=== PATIENT | female | born 1960 | race Caucasian/White ===

== ENCOUNTER 2022-07-11 11:36 | Emergency (ER) | payer OTHER ==
[~2022-07-11] VITALS: Ht 154.9 cm; Wt 103.4 kg
[~2022-07-11 11:36] MED LIST: CAPOTEN12.5 MG PO; SYNTHROID175 MCG; SYNTHROID175 MCG PO
== END 2022-07-11 15:20 | disposition home or self-care (01) ==
LOC: ER 11:36
DX: S00.93XA Contusion of unspecified part of head, initial encounter (principal); W18.30XA Fall on same level, unspecified, initial encounter; Y93.9 Activity, unspecified; Y92.480 Sidewalk as the place of occurrence of the external cause; Y99.9 Unspecified external cause status

== ENCOUNTER 2025-04-17 00:34 | Emergency (ER) | payer OTHER ==
[~2025-04-17] VITALS: Ht 154.9 cm; Wt 86.6 kg
[2025-04-17] MEDS ORDERED: COZAAR25 MG PO (00:48)
[2025-04-17] MEDS ORDERED: TRAMADOL HCL 50 MG TABLET PO STA (01:05)
[2025-04-17] MEDS ORDERED: KETOROLAC TROMETHAMINE 60 MG VIAL IM STA (01:05)
[2025-04-17] MEDS ORDERED: KETOROLAC TROMETHAMINE 60 MG VIAL IM ONE (01:15)
[2025-04-17] MEDS ORDERED: 0.9 % SODIUM CHLORIDE 500 ML IV STA (01:48)
[2025-04-17] MEDS ORDERED: ONDANSETRON HCL 2 MG/ML VIAL IV STA (02:02)
[2025-04-17] MEDS ORDERED: FAMOtidine 10 MG/ML (4ML VIAL) IV PUSH STA (02:03)
[2025-04-17 02:42] LABS: BASO % 0.5 % (0.1-1.2); EOS # 0.05 (0.04-0.54); EOS % 0.3 % (0.7-7.0); LYMPH # 1.52 (1.18-3.74); LYMPH % 9.8 % (19.3-53.1); MEAN PLATELET VOLUME 9.20 fl (9.4-12.4); MONO # 1.05 (0.24-0.82); MONO % 6.8 % (4.7-12.5); NEUT # 12.72 (1.56-6.13); NEUT % 82.1 % (34.0-71.1); RED CELL DISTRIBUTION WIDTH 12.9 % (11.6-14.4)
[2025-04-17 03:43] LABS: INR 1.0
[2025-04-17 03:49] LABS: ALT/SGPT 26.0 U/L (12-78); AST/SGOT 16.0 U/L (15-37); BILIRUBIN TOTAL 0.37 mg/dL (0.3-1.2); BUN CREA RATIO 23.0 (7.0-25.0); CREATININE SERUM 0.69 mg/dL (0.55-1.02); GFR 85.12; GLOBULINA 3.4 G/DL (2.4-3.5); GLUCOSE FASTING 132.0 mg/dL (65-100); OSMOLALITY SERUM 286.0 MOSM/KG (275-295)
== END 2025-04-17 08:52 | disposition home or self-care (01) ==
LOC: ER 00:34
DX: S42.392A Other fracture of shaft of left humerus, initial encounter for closed fracture (principal); W18.39XA Other fall on same level, initial encounter; Y93.89 Activity, other specified; Y92.89 Other specified places as the place of occurrence of the external cause; Y99.9 Unspecified external cause status
CPT/HCPCS: 36415; 71045; 73000; 73030; 73060; 96365; 96366; 96372; 99285; J1885; J2405; J3490